=== PATIENT | female | born 2000 | race Caucasian/White ===

== ENCOUNTER 2021-05-20 15:19 | Emergency (ER) | payer SELFPAY ==
[~2021-05-20] VITALS: Ht 167.6 cm; Wt 100.0 kg
[2021-05-20 15:49] VITALS: BP 117/83
== END 2021-05-20 16:52 | disposition home or self-care (01) ==
LOC: ER 15:19
DX: U07.1 COVID-19 (principal)
CPT/HCPCS: 71045; 81025; 99283